=== PATIENT | female | born 1960 | race Caucasian/White ===

== ENCOUNTER → 2016-07-30 | Outpatient (CLI) | payer BC, OTHER ==
[~2016-07-30] MED LIST: BUSP5TAB59 PO; CYAN1KIT3; CYCL10TA6 PO; ESCI10TA17 PO; FENO134C2 PO; FLUO40CA8 PO; GLIM2TAB PO; HYOS1TAB PO; MORPHINE PUMP; NORT10CA2 PO; NYST80OI TOP; OXGN; PANT40TA PO; THEO1TAB14 PO; TOPI100T20 PO; TORS20TA2 PO; TRAM-10 PO
[2016-07-30 18:01] LABS: BLOOD UREA NITROGEN 16 mg/dl (7-18); BUN/CREATININE RATIO 19.6 (10-20); CALCIUM 8.5 mg/dl (8.5-10.1); CARBON DIOXIDE 32 mmol/L (21-32); CHLORIDE 105 mmol/L (98-107); CREATININE 0.81 mg/dl (0.60-1.20); GLUCOSE 172 mg/dl (70-99); POTASSIUM 3.9 mmol/L (3.5-5.1); SODIUM 142 mmol/L (136-145)
[2016-07-30 18:08] LABS: BASO % 0.4 %; BASO ABS # 0.02 K/uL (0-0.2); COMPLETE YES; EOS % 1.9 %; HEMATOCRIT 29.6 % (37-47); IG% 0.4 %; LYMPH % 31.6 %; LYMPH ABS # 1.49 K/uL (1.2-3.4); MEAN CELL VOLUME 86.5 fL (80-100); MEAN CORPUSCULAR HEMOGLOBIN 27.5 pg (25-34); MEAN CORPUSCULAR HGB CONC 31.8 g/dl (32-36); MEAN PLATELET VOLUME 9.3 fL (7.4-10.4); MONO % 5.9 %; NEUT % 59.8 %; PLATELET COUNT 245 K/uL (130-400); RED BLOOD COUNT 3.42 M/uL (4.2-5.4); WHITE BLOOD COUNT 4.72 K/uL (4.8-10.8)
[2016-07-30 18:11] LABS: ALB/GLOB RATIO 0.9 (0.9-2); ALKALINE PHOSPHATASE 94 U/L (45-117); ALT/SGPT 19 U/L (12-78); AST/SGOT 16 U/L (15-37); THYROID STIMULATING HORMONE 0.789 uIu/ml (0.300-4.500); TOTAL IRON BINDING CAPACITY 291 mcg/dl (250-450)
== END | disposition home or self-care (01) ==
LOC: C.LABMFLN 13:45
PROVIDERS: ATTEND Internal Medicine Pulmonary Disease
DX: J44.9 Chronic obstructive pulmonary disease, unspecified (principal)

== ENCOUNTER → 2016-09-23 | Outpatient (CLI) | payer BC, OTHER ==
[2016-09-23 18:20] LABS: HEMATOCRIT 28.5 % (37-47)
== END | disposition home or self-care (01) ==
LOC: C.LABMFLN 13:50
PROVIDERS: ATTEND Internal Medicine Pulmonary Disease
DX: D64.9 Anemia, unspecified (principal)

== ENCOUNTER → 2017-03-25 | Outpatient (CLI) | payer BC, OTHER ==
[~2017-03-25] MED LIST changes: -FLUO40CA8 PO
[2017-03-25 16:37] LABS: BASO % 0.4 %; BASO ABS # 0.02 K/uL (0-0.2); EOS % 1.8 %; HEMATOCRIT 28.5 % (37-47); IG% 0.8 %; LYMPH % 39.2 %; LYMPH ABS # 1.95 K/uL (1.2-3.4); MEAN CELL VOLUME 91.3 fL (80-100); MEAN CORPUSCULAR HEMOGLOBIN 27.6 pg (25-34); MEAN CORPUSCULAR HGB CONC 30.2 g/dl (32-36); MEAN PLATELET VOLUME 9.1 fL (7.4-10.4); NEUT % 52.8 %; PLATELET COUNT 235 K/uL (130-400); RED BLOOD COUNT 3.12 M/uL (4.2-5.4); WHITE BLOOD COUNT 4.97 K/uL (4.8-10.8)
[2017-03-25 17:00] LABS: COMPLETE YES
[2017-03-25 17:22] LABS: THYROID STIMULATING HORMONE 1.43 uIu/ml (0.300-4.500)
== END | disposition home or self-care (01) ==
LOC: C.LAB1850 15:28
PROVIDERS: ATTEND Physician Assistant
DX: E53.8 Deficiency of other specified B group vitamins (principal)

== ENCOUNTER → 2017-04-03 | Outpatient (CLI) | payer BC, OTHER ==
[2017-04-03 17:48] LABS: BASO % 0.3 %; BASO ABS # 0.02 K/uL (0-0.2); EOS % 1.2 %; HEMATOCRIT 30.3 % (37-47); IG% 0.3 %; LYMPH % 24.4 %; LYMPH ABS # 1.43 K/uL (1.2-3.4); MEAN CELL VOLUME 92.4 fL (80-100); MEAN CORPUSCULAR HEMOGLOBIN 26.8 pg (25-34); MEAN PLATELET VOLUME 9.3 fL (7.4-10.4); MONO % 6.3 %; NEUT % 67.5 %; PLATELET COUNT 280 K/uL (130-400); RED BLOOD COUNT 3.28 M/uL (4.2-5.4); WHITE BLOOD COUNT 5.86 K/uL (4.8-10.8)
[2017-04-03 18:12] LABS: THYROID STIMULATING HORMONE 0.574 uIu/ml (0.300-4.500)
[2017-04-03 18:45] LABS: ANISOCYTOSIS PRESENT; COMPLETE YES
== END | disposition home or self-care (01) ==
LOC: C.LABMFLN 13:54
PROVIDERS: ATTEND Physician Assistant
DX: E87.5 Hyperkalemia (principal); D64.9 Anemia, unspecified

== ENCOUNTER → 2017-04-30 | Outpatient (CLI) | payer BC, OTHER ==
[~2017-04-30] MED LIST changes: -FENO134C2 PO; -TORS20TA2 PO
[2017-04-30 13:05] LABS: HEMATOCRIT 28.1 % (37-47); MEAN CELL VOLUME 89.8 fL (80-100); MEAN CORPUSCULAR HEMOGLOBIN 27.5 pg (25-34); MEAN CORPUSCULAR HGB CONC 30.6 g/dl (32-36); MEAN PLATELET VOLUME 9.2 fL (7.4-10.4); PLATELET COUNT 244 K/uL (130-400); RED BLOOD COUNT 3.13 M/uL (4.2-5.4); WHITE BLOOD COUNT 5.12 K/uL (4.8-10.8)
== END ==
LOC: C.LABMFLN 11:16
PROVIDERS: ATTEND Physician Assistant
DX: D64.9 Anemia, unspecified (principal)

== ENCOUNTER → 2017-08-15 | Outpatient (CLI) | payer BC, OTHER ==
[~2017-08-15] MED LIST changes: +GLC/500 PO; -THEO1TAB14 PO; +THEO300T14 PO
[2017-08-15 12:43] LABS: HEMATOCRIT 27.7 % (37-47); HEMOGLOBIN 8.3 g/dL (12.0-16.0)
== END | disposition home or self-care (01) ==
LOC: C.LABMFLN 16:28
PROVIDERS: ATTEND Family Medicine
DX: D64.9 Anemia, unspecified (principal)

== ENCOUNTER → 2017-08-20 | Outpatient (CLI) | payer BC, OTHER ==
[2017-08-20 18:11] LABS: BLOOD UREA NITROGEN 15 mg/dl (7-18); CREATININE 0.73 mg/dl (0.60-1.20)
== END | disposition home or self-care (01) ==
LOC: C.LABMFLN 10:48
PROVIDERS: ATTEND Family Medicine
DX: G81.94 Hemiplegia, unspecified affecting left nondominant side (principal)

== ENCOUNTER → 2017-09-09 | Day surgery (SDC) | payer BC, OTHER ==
[2017-09-08 12:46] VITALS: Ht 161.3 cm; Wt 77.7 kg
[~2017-09-09] VITALS: Ht 161.3 cm; Wt 77.7 kg
[~2017-09-09] MED LIST changes: +CLOP1TAB15 PO; -ESCI10TA17 PO; +ESCI1TAB10 PO; -HYOS1TAB PO; +LIDOCAINE HCL 2% 2 ML VIAL (20MG/ML) ONE; +PRED10TA PO; +PROPOFOL IV EMULSION 10 MG/ML 20 ML VIAL IV ONE; +SODIUM CHLORIDE 0.9% 500ML 500 ML IV ONE
--- NOTE | 2017-09-09 13:40 | Endo History and Physical ---
History & Physical Date of Service: Sep 09, 2017. Chief Complaint: anemia,acute blood loss Referring Physician: Dr.Evangelos Olivera History of Present Illness bleeding via colostomy Past Medical History Diabetes, Osteoporosis, Arthritis, Fractures, Asthma, Gastrointestinal Disorder , Anxiety, Reflux, Seizure Disorder, Sleep Apnea, Syncopal Episodes, Thrombophlebitis, Other, Depression, [place] Past Surgical History Hx Cardiac Surgery: Yes (HEART CATH, NO STENTS) Hx Internal Defibrillator: No Hx Pacemaker: No Hx Abdominal Surgery: Yes (RECTUM REMOVAL WITH COLOSTOMY, STOMA RECREATION, FULL HYSTER, APPY(?)) Hx of Implantable Prosthesis: No Hx Post-Op Nausea and Vomiting: No Hx Cancer Surgery: No Hx Thoracic Surgery: Yes (BRONCHOSCOPY) Hx Orthopedic: Yes (MULTIPLE RT ARM, LT ELBOW I&D) Hx Urinary Tract Surgery: Yes (BLADDER TACK WITH MESH) Family History Polyp, IBD Social History Smoking Status: Former Smoker Hx Substance Use: No Hx Alcohol Use: No Allergies Coded Allergies: Azithromycin (Verified Allergy, Severe, "DIDN'T WORK FOR ME", 09/09/17) Ceftaroline (Verified Allergy, Mild, Hives, 09/09/17) Alendronate (Verified Allergy, Unknown, "DIDN'T WORK FOR ME", 09/09/17) Aspirin (Verified Allergy, Unknown, HIVES, 09/09/17) Cefaclor (Verified Allergy, Unknown, HIVES, 09/09/17) Dipyridamole (Verified Allergy, Unknown, HIVES, 09/09/17) Gabapentin (Verified Allergy, Unknown, HIVES/confusion, 09/09/17) Indomethacin (Verified Allergy, Unknown, HIVES, 09/09/17) Moxifloxacin (Verified Allergy, Unknown, HIVES, Cipro is OK to take from [id number], 09/09/17) NSAIDs (Verified Allergy, Unknown, HIVES, 09/09/17) Oxycodone (Verified Allergy, Unknown, HIVES, 09/09/17) tolerates morphine Penicillins (Verified Allergy, Unknown, HIVES, 09/09/17) Sulfa Antibiotics (Verified Allergy, Unknown, HIVES OR VOMITTING, 09/09/17) Valproic Acid (Verified Allergy, Unknown, HIVES, 09/09/17) HALLUCINATIONS Current Medications Reported Home Medications Medications Dose Route/Sig Max Daily Dose Days Date Category Dose Instructions Prednisone 10 Mg Tab 0 PO UD PRN 09/08/17 Reported STERAPRED 10MG 12 DAY Lexapro (Escitalopram Oxalate) 20 Mg Tab 20 Mg PO HS 09/08/17 Reported Plavix (Clopidogrel Bisulfate) 75 Mg Tab 75 Mg PO QAM 08/28/17 Reported Glucophage (Metformin Hcl) 500 Mg Tab 500 Mg PO QAM 06/26/17 Reported Nystatin (Nystatin (Topical)) 100,000 Unit/Gm Oin 1 Appln TOP TID PRN 03/07/17 Reported Protonix (Pantoprazole Sodium) 40 Mg Tab 40 Mg PO HS 07/10/16 Reported Flexeril (Cyclobenzaprine Hcl) 10 Mg Tab 10 Mg PO TID 07/10/16 Reported Pamelor (Nortriptyline HCl) 10 Mg Cap 10 Mg PO HS 07/10/16 Reported Ultram (Tramadol HCl) 50 Mg Tab 1-2 Tab PO Q4-6H 12/04/15 Reported B-12 Compliance Injection (Cyanocobalamin) 1,000 Mcg/Ml Kit MONTHLY 10/26/15 Reported Oxygen Gas 5 Liters NA CONTINUOUSLY 02/02/15 Reported Amaryl (Glimepiride) 2 Mg Tab 4 Mg PO QAM 02/02/15 Reported Buspirone Hcl 5 Mg Tab 1 Tab PO BID 02/02/15 Reported [Morphine Pump] UD 11/22/11 Reported DAILY DOSE OF MORPHINE 3.848MG & 153.92 MCG CLONIDINE Topamax (Topiramate) 100 Mg Tab 150 Mg PO BID 01/08/11 Reported Daquan-Dur Ext Rel (Theophylline) 300 Mg Tabcr 300 Mg PO BID 12/04/10 Reported Vital Signs Weight (Kilograms): 77.73 Height (Feet): 5 Height (Inches): 3.5 Date Time Temp Pulse Resp B/P (MAP) Pulse Ox O2 Delivery O2 Flow Rate FiO2 09/09/17 13:32 36.2 84 22 119/65 (83) 100 Nasal Cannula 5 Physical Exam General Appearance: WD/WN, no apparent distress Respiratory/Chest: Auscultation: breath sounds normal Cardiovascular: Heart Auscultation: RRR Abdomen: Bowel Sounds: normal Inspection & Palpation: soft, non-distended, no tenderness, guarding & rebound Assessment and Plan colonoscopy via colostomy for bleeding
--- NOTE | 2017-09-09 14:39 | Discharge Instructions ---
Endoscopy Patient Instructions Date / Procedure(s) Performed Sep 09, 2017. Colonoscopy Allergy Information Coded Allergies: Azithromycin (Verified Allergy, Severe, "DIDN'T WORK FOR ME", 09/09/17) Ceftaroline (Verified Allergy, Mild, Hives, 09/09/17) Alendronate (Verified Allergy, Unknown, "DIDN'T WORK FOR ME", 09/09/17) Aspirin (Verified Allergy, Unknown, HIVES, 09/09/17) Cefaclor (Verified Allergy, Unknown, HIVES, 09/09/17) Dipyridamole (Verified Allergy, Unknown, HIVES, 09/09/17) Gabapentin (Verified Allergy, Unknown, HIVES/confusion, 09/09/17) Indomethacin (Verified Allergy, Unknown, HIVES, 09/09/17) Moxifloxacin (Verified Allergy, Unknown, HIVES, Cipro is OK to take from [id number], 09/09/17) NSAIDs (Verified Allergy, Unknown, HIVES, 09/09/17) Oxycodone (Verified Allergy, Unknown, HIVES, 09/09/17) tolerates morphine Penicillins (Verified Allergy, Unknown, HIVES, 09/09/17) Sulfa Antibiotics (Verified Allergy, Unknown, HIVES OR VOMITTING, 09/09/17) Valproic Acid (Verified Allergy, Unknown, HIVES, 09/09/17) HALLUCINATIONS Discharge Date / Findings Sep 09, 2017. 1) fair prep 2) excoriation/lmited colitis that likley reflects pressure from stoma ring 3) bx taken Medication Instructions Stopped Medication(s): stopped Glucophage 09/07,took Plavix yesterday Restart Stopped Medication(s): Reported Home Medications Medications Dose Route/Sig Max Daily Dose Days Date Category Dose Instructions Prednisone 10 Mg Tab 0 PO UD PRN 09/08/17 Reported STERAPRED 10MG 12 DAY Lexapro (Escitalopram Oxalate) 20 Mg Tab 20 Mg PO HS 09/08/17 Reported Plavix (Clopidogrel Bisulfate) 75 Mg Tab 75 Mg PO QAM 08/28/17 Reported Glucophage (Metformin Hcl) 500 Mg Tab 500 Mg PO QAM 06/26/17 Reported Nystatin (Nystatin (Topical)) 100,000 Unit/Gm Oin 1 Appln TOP TID PRN 03/07/17 Reported Protonix (Pantoprazole Sodium) 40 Mg Tab 40 Mg PO HS 07/10/16 Reported Flexeril (Cyclobenzaprine Hcl) 10 Mg Tab 10 Mg PO TID 07/10/16 Reported Pamelor (Nortriptyline HCl) 10 Mg Cap 10 Mg PO HS 07/10/16 Reported Ultram (Tramadol HCl) 50 Mg Tab 1-2 Tab PO Q4-6H 12/04/15 Reported B-12 Compliance Injection (Cyanocobalamin) 1,000 Mcg/Ml Kit MONTHLY 10/26/15 Reported Oxygen Gas 5 Liters NA CONTINUOUSLY 02/02/15 Reported Amaryl (Glimepiride) 2 Mg Tab 4 Mg PO QAM 02/02/15 Reported Buspirone Hcl 5 Mg Tab 1 Tab PO BID 02/02/15 Reported [Morphine Pump] UD 11/22/11 Reported DAILY DOSE OF MORPHINE 3.848MG & 153.92 MCG CLONIDINE Topamax (Topiramate) 100 Mg Tab 150 Mg PO BID 01/08/11 Reported Daquan-Dur Ext Rel (Theophylline) 300 Mg Tabcr 300 Mg PO BID 12/04/10 Reported 1) Apply Anusol HC cream to external stomal surface twice daily 2) followup with Dr Olivera 3) Stomal nurse to see patient today for refitting Reported Home Medications Medications Dose Route/Sig Max Daily Dose Days Date Category Dose Instructions Prednisone 10 Mg Tab 0 PO UD PRN 09/08/17 Reported STERAPRED 10MG 12 DAY Lexapro (Escitalopram Oxalate) 20 Mg Tab 20 Mg PO HS 09/08/17 Reported Plavix (Clopidogrel Bisulfate) 75 Mg Tab 75 Mg PO QAM 08/28/17 Reported Glucophage (Metformin Hcl) 500 Mg Tab 500 Mg PO QAM 06/26/17 Reported Nystatin (Nystatin (Topical)) 100,000 Unit/Gm Oin 1 Appln TOP TID PRN 03/07/17 Reported Protonix (Pantoprazole Sodium) 40 Mg Tab 40 Mg PO HS 07/10/16 Reported Flexeril (Cyclobenzaprine Hcl) 10 Mg Tab 10 Mg PO TID 07/10/16 Reported Pamelor (Nortriptyline HCl) 10 Mg Cap 10 Mg PO HS 07/10/16 Reported Ultram (Tramadol HCl) 50 Mg Tab 1-2 Tab PO Q4-6H 12/04/15 Reported B-12 Compliance Injection (Cyanocobalamin) 1,000 Mcg/Ml Kit MONTHLY 10/26/15 Reported Oxygen Gas 5 Liters NA CONTINUOUSLY 02/02/15 Reported Amaryl (Glimepiride) 2 Mg Tab 4 Mg PO QAM 02/02/15 Reported Buspirone Hcl 5 Mg Tab 1 Tab PO BID 02/02/15 Reported [Morphine Pump] UD 11/22/11 Reported DAILY DOSE OF MORPHINE 3.848MG & 153.92 MCG CLONIDINE Topamax (Topiramate) 100 Mg Tab 150 Mg PO BID 01/08/11 Reported Daquan-Dur Ext Rel (Theophylline) 300 Mg Tabcr 300 Mg PO BID 12/04/10 Reported 1) Apply Anusol HC cream to external stomal surface twice daily 2) followup with Dr Olivera 3) Stomal nurse to see patient today for refitting Provider Instructions Activity Restrictions - No exercising or heavy lifting for 24 hours. - Do not drink alcohol the day of the procedure. - Do not drive a car or operate machinery until the day after the procedure. - Do not make any important decisions or sign important papers in 24 hours after the procedure. Following Day: - Return to full activity which may include returning to work/school. Diet Start your diet with liquids and light foods (jello, soup, juice, toast). Then eat your usual diet if not nauseated. Treatment For Common After Affects For mild abdominal pain, bloating, or excessive gas: - Rest - Eat lightly - Lie on right side Follow-Up Information Follow-up with Dr.Evangelos Olivera as scheduled Anesthesia Information What You Should Know You have had a procedure that required some medicine to reduce anxiety and discomfort. This treatment is called moderate sedation. After receiving the treatment, you may be sleepy, but you will be able to breathe on your own. The effects of the treatment may last for several hours. Follow these instructions along with Activity/Diet recommendations noted above: * Do NOT do anything where dizziness or clumsiness would be dangerous. * Rest quietly at home today, then you can be up and about tomorrow. * Have a responsible person stay with you the rest of today. * You may have had an I.V. today. If so, you may take the dressing off later today. Recommendations Call your doctor if: * Trouble breathing * Continuous vomiting for more than 24 hours * Temperature above 101 degrees * Severe abdominal pain or bloating * Pain not relieved by pain medicine ordered * There is increased drainage or redness from any incision * A large amount of rectal bleeding greater than 2-3 tablespoons. (If you had a polyp/s removed or have hemorrhoids, a small amount of blood - from the rectum is to be expected.) * You have any unanswered questions or concerns. IN THE EVENT OF A SERIOUS EMERGENCY, GO TO THE NEAREST EMERGENCY ROOM Your discharge instructions were prepared by provider Odilon Mathews. Patient Instructions Signature Page Tamia Vargas Patient (or Guardian) Signature/Date: I have read and understand the instructions given to me by my caregivers. Caregiver/RN/Doctor Signature/Date: The above-named patient and/or guardian has received patient instructions on this date. + Original Patient Signature Page (only) stays with chart. Please make copy for patient.
--- NOTE | 2017-09-09 14:51 | GI REPORT ---
Procedure Date: 09/09/2017 1:56 PM Procedure: Colonoscopy Indications: Hematochezia Medicines: Propofol per Anesthesia Complications: No immediate complications. Estimated blood loss: Minimal. Estimated Blood Loss: Estimated blood loss was minimal. Procedure: Pre-Anesthesia Assessment: - Prior to the procedure, a History and Physical was performed, and patient medications and allergies were reviewed. The patient's tolerance of previous anesthesia was also reviewed. The risks and benefits of the procedure and the sedation options and risks were discussed with the patient. All questions were answered, and informed consent was obtained. Prior Anticoagulants: The patient has taken no previous anticoagulant or antiplatelet agents. ASA Grade Assessment: III - A patient with severe systemic disease. After reviewing the risks and benefits, the patient was deemed in satisfactory condition to undergo the procedure. After I obtained informed consent, the scope was passed under direct vision. Throughout the procedure, the patient's blood pressure, pulse, and oxygen saturations were monitored continuously. The scope was introduced through the transverse colostomy and advanced to the cecum, identified by appendiceal orifice and ileocecal valve. The colonoscopy was performed without difficulty. The patient tolerated the procedure well. The quality of the bowel preparation was fair. Findings: The perianal and digital rectal examinations were normal. Pertinent negatives include normal sphincter tone, no palpable rectal lesions and no anal lesion or abnormality was detected. The cecum and area from surgical stoma to cecum appeared normal. Biopsies were taken with a cold forceps for histology. Estimated blood loss was minimal. Verification of patient identification for the specimen was done by the physician and case technician using the patient's name and medical record number. Estimated blood loss was minimal. A localized area of moderately congested, erythematous, eroded, inflamed and ulcerated mucosa was found at the surgical stoma. The area of colonic mucosa as it protrudes from the skin surface appears ulcaraeted and friable. This is nearly circumferential in patter. This may reflect trauma from applinace cuff and irrtioanion from Rs movent . Impression: - Preparation of the colon was fair. - The cecum and surgical stoma to cecum are normal. Biopsied. - Congested, erythematous, eroded, inflamed and ulcerated mucosa at the surgical stoma. Recommendation: - Discharge patient to home (ambulatory). - Resume regular diet. - Continue present medications. - Await pathology results. - Refer to an ostomy nurse today. - Return to referring physician as previously scheduled. - Use Analpram HC Cream 2.5%: Apply externally BID for 6 weeks. MD Odilon Marmolejo MD 09/09/2017 2:50:27 PM This report has been signed electronically. Note Initiated On: 09/09/2017 1:56 PM I attest to the content of the Intraoperative Record and orders documented therein, exceptions below
[2017-09-09 15:06] VITALS: BP 109/70; PULSE 77; O2SAT 100
--- NOTE | 2017-09-09 15:06 | Anesthesiology Progress Note ---
Anesthesia Post Op Note Date & Time Sep 09, 2017 at 15:06 Vital Signs Pain Intensity: 9 Vital Signs Past 12 Hours Date Time Temp Pulse Resp B/P (MAP) Pulse Ox O2 Delivery O2 Flow Rate FiO2 09/09/17 14:50 79 22 127/76 (93) 100 Nasal Cannula 5 09/09/17 14:35 87 22 110/63 (79) 100 Nasal Cannula 5 09/09/17 13:32 36.2 84 22 119/65 (83) 100 Nasal Cannula 5 Notes Mental Status: alert / awake / arousable, participated in evaluation Pt Amnestic to Procedure: Yes Nausea / Vomiting: adequately controlled Pain: adequately controlled Airway Patency, RR, SpO2: stable & adequate BP & HR: stable & adequate Hydration State: stable & adequate Anesthetic Complications: no major complications apparent
== END | disposition home or self-care (01) ==
LOC: C.GI 12:44
PROVIDERS: ATTEND Internal Medicine Gastroenterology
DX: K92.1 Melena (principal); K31.89 Other diseases of stomach and duodenum; J45.909 Unspecified asthma, uncomplicated; J44.9 Chronic obstructive pulmonary disease, unspecified; E11.9 Type 2 diabetes mellitus without complications; Z88.0 Allergy status to penicillin; Z88.1 Allergy status to other antibiotic agents; Z88.2 Allergy status to sulfonamides; Z88.8 Allergy status to other drugs, medicaments and biological substances; Z79.899 Other long term (current) drug therapy; Z90.710 Acquired absence of both cervix and uterus; Z98.890 Other specified postprocedural states; Z87.891 Personal history of nicotine dependence

== ENCOUNTER → 2017-10-08 | Outpatient (CLI) | payer BC, OTHER ==
[~2017-10-08] MED LIST changes: -LIDOCAINE HCL 2% 2 ML VIAL (20MG/ML) ONE; -PROPOFOL IV EMULSION 10 MG/ML 20 ML VIAL IV ONE; -SODIUM CHLORIDE 0.9% 500ML 500 ML IV ONE
[2017-10-08 17:45] LABS: HEMATOCRIT 27.1 % (37-47); HEMOGLOBIN 8.5 g/dL (12.0-16.0)
== END | disposition home or self-care (01) ==
LOC: C.LABMFLN 12:33
PROVIDERS: ATTEND Family Medicine
DX: D64.9 Anemia, unspecified (principal)

== ENCOUNTER → 2017-11-25 | Outpatient (CLI) | payer BC, OTHER ==
[~2017-11-25] MED LIST changes: +BUPR-83 PO; -PRED10TA PO
[2017-11-25 13:30] LABS: BASO % 0.5 %; BASO ABS # 0.03 K/uL (0-0.2); EOS % 2.3 %; EOS ABS # 0.14 K/uL (0-0.5); HEMATOCRIT 24.2 % (37-47); HEMOGLOBIN 7.6 g/dL (12.0-16.0); IG# 0.03 K/uL (0.00-0.02); LYMPH % 32.6 %; LYMPH ABS # 2.02 K/uL (1.2-3.4); MEAN CELL VOLUME 87.4 fL (80-100); MEAN CORPUSCULAR HEMOGLOBIN 27.4 pg (25-34); MEAN CORPUSCULAR HGB CONC 31.4 g/dl (32-36); MEAN PLATELET VOLUME 8.7 fL (7.4-10.4); MONO ABS # 0.31 K/uL (0.11-0.59); NEUT % 59.1 %; NEUT ABS # 3.67 K/uL (1.4-6.5); PLATELET COUNT 314 K/uL (130-400); RED CELL DISTRIBUTION WIDTH CV 14.5 % (11.5-14.5); RED CELL DISTRIBUTION WIDTH SD 46.1 fL (36.4-46.3)
== END | disposition home or self-care (01) ==
LOC: C.LABBC 11:56
PROVIDERS: ATTEND Physician Assistant Medical
DX: Z01.812 Encounter for preprocedural laboratory examination (principal); R58 Hemorrhage, not elsewhere classified; D64.9 Anemia, unspecified

== ENCOUNTER → 2017-12-02 | Outpatient (CLI) | payer BC, OTHER ==
[~2017-12-02] MED LIST changes: +ASCO250T4 PO; -CLOP1TAB15 PO; +FERR18TA2 PO; +PYRI100T6 PO
[2017-12-02 18:07] LABS: HEMATOCRIT 27.3 % (37-47); HEMOGLOBIN 8.3 g/dL (12.0-16.0)
== END | disposition home or self-care (01) ==
LOC: C.LABMFLN 13:21
PROVIDERS: ATTEND Family Medicine
DX: D64.9 Anemia, unspecified (principal); G43.909 Migraine, unspecified, not intractable, without status migrainosus; N20.0 Calculus of kidney; A49.02 Methicillin resistant Staphylococcus aureus infection, unspecified site

== ENCOUNTER 2017-12-07 11:59 | Emergency (ER) | payer BC, OTHER ==
[~2017-12-07] VITALS: Ht 162.6 cm; Wt 75.0 kg
[~2017-12-07 11:59] MED LIST changes: -ASCO250T4 PO; -FERR18TA2 PO; -PYRI100T6 PO
[2017-12-07 12:09] VITALS: TEMP 36.6; Ht 162.6 cm; Wt 75.0 kg
[2017-12-07] MEDS ORDERED: MoRPHine SULFATE 4 MG/ML 1 ML CARP\\VIAL IV STA (12:24)
[2017-12-07] MEDS ORDERED: PYRI100T6 PO (13:34)
[2017-12-07] MEDS ORDERED: ASCO250T4 PO (13:34)
[2017-12-07] MEDS ORDERED: FERR18TA2 PO (13:34)
--- NOTE | 2017-12-07 14:29 | DIAGNOSTIC IMAGING REPORT ---
L PELVIS/UNILATERAL HIP 2-3VIEWS CLINICAL HISTORY: left hip pain fall COMPARISON STUDY: Abdomen and pelvis CT 12/04/2015. FINDINGS: Sacral stimulator pack and leads are noted within the right lower quadrant. Right-sided sacroiliac screws. The hardware appears intact. No fracture or dislocation within the pelvis or hips. Left lower quadrant pump and catheter are partially visualized. IMPRESSION: No fracture or dislocation within the pelvis or hips. Electronically signed by: Higinio Her M.D. 12/07/2017 2:28 PM Dictated Date/Time: 12/07/2017 2:25 PM
--- NOTE | 2017-12-07 14:32 | DIAGNOSTIC IMAGING REPORT ---
KUB HISTORY: eval pain pump for tube detachment COMPARISON: Abdomen and pelvis CT 12/04/2015. KUB 01/05/2013. FINDINGS: The bowel gas pattern is unremarkable. There are no dilated loops of small bowel to suggest an obstruction. No renal calculi. No ureteral calculi. Calcifications in the deep pelvis likely represent phleboliths. Right lower quadrant sacral stimulator device and a right sacroiliac screw are noted. The right lower quadrant ostomy present. Prior cholecystectomy. The lung bases are clear. Tip of a distal SVC catheter is noted. Left lower quadrant pain pump. The tubing appears intact. The tip terminates at the T9-T10 disc space level. No pneumoperitoneum or pneumatosis. IMPRESSION: 1. Left lower quadrant pain pump with intrathecal catheter terminating at the T9-T10 disc space level. The visualized tubing appears intact. 2. No evidence for bowel obstruction. Electronically signed by: Higinio Her M.D. 12/07/2017 2:31 PM Dictated Date/Time: 12/07/2017 2:28 PM
--- NOTE | 2017-12-07 15:37 | Pain Management Consultation ---
Pain Management Consultation Date of Consultation December 07, 2017. Reason for Consultation increased pain/ITP presence Pain Location 1 - History This is a 57-year-old white female that is well-known to the [facility] pain service with a history of chronic intractable lumbago secondary to postlaminectomy syndrome that required the implantation of an intrathecal pump and catheter delivery system. The pump was replaced on 11/11/17 . She has been wearing the abdominal binder 17/02 and making sure that it is on tightly. She states that she fell OOB onto the floor on friday and has been having worsening pain since then. PTM has not been providing pain relief. Pain is rated 9-10/ 10 currently. She admits to nausea, feeling anxious, and jittery. She admits to tachycardia and "pain that feels as bad as before I had my pump." No B/B incontinence/motor weakness/foot drop/fever/night sweats. Past Medical/Surgical History (1) Chronic pain (2) Chronic obstructive lung disease (3) HYPOTHYROIDISM NOS (4) DIAB HARRY WO COMPL, TYPE II OR UNSPEC TYPE, NOT UNCNTRLD (5) DEPRESSIVE DISORDER NEC (6) CONGESTIVE HEART FAILURE NOS (7) CALCULUS OF KIDNEY (8) Coronary artery disease (9) History of myocardial infarction (10) Asthma (11) COPD (chronic obstructive pulmonary disease) (12) Dependence on supplemental oxygen (13) Anxiety disorder (14) Diabetes mellitus (15) Rheumatoid arthritis (16) Osteoarthritis (17) GERD (gastroesophageal reflux disease) (18) Migraine headache (19) Seizure disorder (20) Cardiac murmur (21) Depressive disorder (22) Dyslipidemia (23) Peripheral neuropathy (24) History of TIA (transient ischemic attack) (25) Neurogenic bladder (26) Degenerative disc disease (27) Cervicalgia (28) Colostomy present (29) Presence of intrathecal pump (30) History of lumbar fusion (31) S/P implantation of urinary electronic stimulator device (32) Hx of tonsillectomy (33) Hx of cholecystectomy (34) History of herniorrhaphy (35) History of hysterectomy (36) History of cardiac cath (37) Anemia (38) GI bleeding (39) Occult GI bleeding (40) Right flank pain (41) Septic arthritis of elbow, left Family History Cancer Diabetes mellitus Heart disease Hypertension Kidney disease Kidney stones Lung disease Social / Work History Smokeless Tobacco Use: No Alcohol Use: none Drug Use: none Marital Status: Housing Status: lives with significant other Occupation: disabled Allergies Coded Allergies: Ceftaroline (Verified Allergy, Mild, Hives, 12/07/17) Alendronate (Verified Allergy, Unknown, "DIDN'T WORK FOR ME", 12/07/17) Aspirin (Verified Allergy, Unknown, HIVES, 12/07/17) Cefaclor (Verified Allergy, Unknown, HIVES, 12/07/17) Dipyridamole (Verified Allergy, Unknown, HIVES, 12/07/17) Gabapentin (Verified Allergy, Unknown, HIVES/confusion, 12/07/17) Indomethacin (Verified Allergy, Unknown, HIVES, 12/07/17) Moxifloxacin (Verified Allergy, Unknown, HIVES, Cipro is OK to take from [id number], 12/07/17) NSAIDs (Verified Allergy, Unknown, HIVES, 12/07/17) Oxycodone (Verified Allergy, Unknown, HIVES, 12/07/17) tolerates morphine Penicillins (Verified Allergy, Unknown, HIVES, 12/07/17) Sulfa Antibiotics (Verified Allergy, Unknown, HIVES OR VOMITTING, 12/07/17) Valproic Acid (Verified Allergy, Unknown, HIVES, 12/07/17) HALLUCINATIONS Azithromycin (Verified Adverse Reaction, Mild, "DIDN'T WORK FOR ME", ) Medications Bupropion (Wellbutrin), 100 MG PO HS Buspirone Hcl (Buspirone Hcl), 1 TAB PO BID Cyanocobalamin (B-12 Compliance Injection), MONTHLY Cyclobenzaprine Hcl (Flexeril), 10 MG PO TID Escitalopram Oxalate (Lexapro), 20 MG PO HS Glimepiride (Amaryl), 4 MG PO QAM Home O2 Therapy (Oxygen), 5 LITERS NA CONTINUOUSLY Metformin Hcl (Glucophage), 500 MG PO BID Nortriptyline (Pamelor), 10 MG PO HS Pantoprazole (Protonix), 40 MG PO HS Theophylline Ext Rel (Daquan-Dur Ext Rel), 300 MG PO BID Topiramate (Topamax), 150 MG PO BID Tramadol (Ultram), 1-2 TAB PO Q4-6H [Morphine Pump], UD Scheduled PRN Nystatin (Topical) (Nystatin), 1 APPLN TOP TID PRN for STOMA IRRITATION Review of Systems Denies complaints related to 10 point organ system review with exceptions listed below: Positive for increased pain, nausea, LE spasm, anxiety Physical Exam Height & Weight: Height 5 feet, 4.00 inches. Weight 75.000 (Kilograms) 165 (Pounds) Last Vital Signs Documentation Date Time Temp Pulse Resp B/P (MAP) Pulse Ox O2 Delivery O2 Flow Rate FiO2 12/07/17 14:33 121 22 157/110 100 Nasal Cannula 4.0 12/07/17 12:09 36.6 Exam: GENERAL: Mrs. Vargas is a 57-year-old white female that appears much older than her stated age. She is physically deconditioned. Speech and cognition is intact. Mood and affect is appropriate. Patient is utilizing oxygen via nasal cannula. She is accompanied by her on exam HEENT: pupils dilated to approx 5mm but reactive. neck supple with FROM CV: tachy but regular, no JVD Lung: mild wheeze, noted SOB ABDOMEN: Pump and catheter site is unremarkable for evidence of edema, erythema , or skin breakdown. Pump is located in the left abdomen and nonmobile. Pump has no surrounding edema. + stoma on the right side of the abdomen. Well healing incision over LLQ with steri strips insitu. Non-tender, non-distended. Spine: TTP over entire thoracolumbar pain with moderate spasm. NEUROLOGIC: Cranial nerves are grossly intact. 5/5 strength BL LE with intact sensation and minimal edema noted to ankles. SKIN: Steri-strips are in place. Incision appears to be healing well. No erythema, warmth, or drainage noted. Imaging Other Findings Patient: DON VARGAS Address1: [address] [place] [address] Rec: [id number] Address2: Acct ID: [id number] [facility] Zip: [place] [address] Date: 1960 Sex: F Room/Bed: Ref Phy: Chaitanya Palacio M.D. SC: NICA Att Phy: Report #: [id number] Opal Phy: Chaitanya Palacio M.D. Test: [id number] Admit Phy: Straight Ruling Machine Operator: ROGER Interpreting Phy: Higinio Her MD Diagnosis: PAIN IN L HIP PT FELL Ordering Phy: German Rosales D.O. Service Date: 12/07/17 Admit Date: 12/07/17 MNE: [id number] CONF: DICTATED BY: Higinio Her M.D.]] CC: German Rosales D.O. Murray, Michael ., M.D. Endcc: [~ rep ct add3]] L PELVIS/UNILATERAL HIP 2-3VIEWS CLINICAL HISTORY: left hip pain fall COMPARISON STUDY: Abdomen and pelvis CT 12/04/2015. FINDINGS: Sacral stimulator pack and leads are noted within the right lower quadrant. Right-sided sacroiliac screws. The hardware appears intact. No fracture or dislocation within the pelvis or hips. Left lower quadrant pump and catheter are partially visualized. IMPRESSION: No fracture or dislocation within the pelvis or hips. Patient: DON VARGAS Address1: [address] [place] [address] Rec: [id number] Address2: Acct ID: [id number] [facility] Zip: [place] [address] Date: 1960 Sex: F Room/Bed: Ref Phy: Chaitanya Palacio M.D. SC: NICA Att Phy: Report #: [id number] Opal Phy: Chaitanya Palacio M.D. Test: KUB Admit Phy: Straight Ruling Machine Operator: ROGER Interpreting Phy: Higinio Her MD Diagnosis: PAIN IN L HIP PT FELL Ordering Phy: German Rosales D.O. Service Date: 12/07/17 Admit Date: 12/07/17 MNE: PWRSCRIBE CONF: DICTATED BY: Higinio Her M.D.]] CC: German Rosales D.O. Murray, Michael ., M.D. Endcc: DIAGNOSTIC IMAGING ] KUB HISTORY: eval pain pump for tube detachment COMPARISON: Abdomen and pelvis CT 12/04/2015. KUB 01/05/2013. FINDINGS: The bowel gas pattern is unremarkable. There are no dilated loops of small bowel to suggest an obstruction. No renal calculi. No ureteral calculi. Calcifications in the deep pelvis likely represent phleboliths. Right lower quadrant sacral stimulator device and a right sacroiliac screw are noted. The right lower quadrant ostomy present. Prior cholecystectomy. The lung bases are clear. Tip of a distal SVC catheter is noted. Left lower quadrant pain pump. The tubing appears intact. The tip terminates at the T9-T10 disc space level. No pneumoperitoneum or pneumatosis. IMPRESSION: 1. Left lower quadrant pain pump with intrathecal catheter terminating at the T9-T10 disc space level. The visualized tubing appears intact. 2. No evidence for bowel obstruction. Past Records Previous Records: personally reviewed by me Assessment 1. Chronic intractable low back pain secondary to lumbar postlaminectomy syndrome requiring implantation of an intrathecal pump and catheter delivery system. 2. Chronic obstructive pulmonary disease with chronic oxygen dependency 3. Chronic cervicalgia. 4. Cervicogenic headaches. 5. Recent intrathecal pump replacement 11/11/17. 6. Fall out of bed within last 3 days with increased pain Recommendations 1. Pump was interrogated and deemed to be running morhpine 15mg/ml and clonidine 600mcg/ml at morphine 3.529ng/day clonidine 141.16mcg/day with PTM utilized 39time and 7 lockout attempts. ROSALES 80 months. [place] volume 12.4ml. 2. Review KUB and no noted catheter fx, but will order thoraco-Lumbar spine 5 view with obliques XR as unable to fully tract entire length of catheter. 3. Consider baclofen 5-10mg PO Q8 prn addition to minimize spasm. 4. Will plan for 10% increase in ITP dose provided catheter not fx'd on XR images.
--- NOTE | 2017-12-07 16:07 | DIAGNOSTIC IMAGING REPORT ---
LUMBAR SPINE 5 VIEWS HISTORY: Low back pain s/p fall. r/i ITP cath fx vs comp fx COMPARISON: L spine 02/14/2014. FINDINGS: There is no fracture. No subluxation. Mild dextroscoliosis, unchanged. The left lower quadrant pain pump and intrathecal catheter are again noted. Right sacroiliac joint screw and a right lower quadrant sacral stimulator device are again noted. Old, healed left rib fractures. Right lower quadrant ostomy. Mild left-sided facet osteoarthritis. Disc spaces are preserved. Straightening of the lumbar spine. IMPRESSION: No fracture or subluxation within the lumbar spine. Electronically signed by: Higinio Her M.D. 12/07/2017 4:06 PM Dictated Date/Time: 12/07/2017 4:03 PM
[2017-12-07] MEDS ORDERED: FLEXERIL HOME PACK 10 MG VIAL PO ONE (16:30)
[2017-12-07 16:33] VITALS: BP 154/106; PULSE 108; O2SAT 99
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
== END 2017-12-07 16:38 | disposition home or self-care (01) ==
LOC: C.EDB 12:00
DX: M25.552 Pain in left hip (principal); W19.XXXA Unspecified fall, initial encounter; G40.909 Epilepsy, unspecified, not intractable, without status epilepticus; G89.29 Other chronic pain; J44.9 Chronic obstructive pulmonary disease, unspecified; I50.9 Heart failure, unspecified; E11.9 Type 2 diabetes mellitus without complications; I25.10 Atherosclerotic heart disease of native coronary artery without angina pectoris; F41.8 Other specified anxiety disorders; Z97.8 Presence of other specified devices; Z93.3 Colostomy status; Z79.84 Long term (current) use of oral hypoglycemic drugs; Z99.81 Dependence on supplemental oxygen; Z79.899 Other long term (current) drug therapy; Z87.891 Personal history of nicotine dependence; Z88.6 Allergy status to analgesic agent; Z88.8 Allergy status to other drugs, medicaments and biological substances; Z88.0 Allergy status to penicillin; Z88.2 Allergy status to sulfonamides; Z88.1 Allergy status to other antibiotic agents; R03.0 Elevated blood-pressure reading, without diagnosis of hypertension